=== PATIENT | male | born 1990 ===

== ENCOUNTER 2020-07-06 11:01 | Emergency (ER) | payer OTHER ==
[2020-07-06 16:42] LABS: SARS-CoV-2 MS2 Positive; SARS-CoV-2 N Gene Negative; SARS-CoV-2 S Gene Negative; SARS-CoV-2 by NAA Not Detected (NotDetected); SARS-CoV-2 orf1ab Negative
== END 2020-07-06 11:30 | disposition home or self-care (01) ==
LOC: ERS 11:01
DX: R09.81 Nasal congestion (principal); Z20.828 Contact with and (suspected) exposure to other viral communicable diseases; F17.210 Nicotine dependence, cigarettes, uncomplicated
CPT/HCPCS: 87635; 99283; U0003